=== PATIENT | male | born 1940 | race Caucasian/White ===

== ENCOUNTER → 2018-02-27 10:23 | Outpatient (CLI) | payer OTHER, SELFPAY ==
--- NOTE | 2018-02-27 10:27 | DI.RAD.S_ITS ---
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 recurrence? TECHNIQUE: 2 views of the chest were acquired. COMPARISON: None. FINDINGS: Surgical changes and devices: Median sternotomy. Multiple surgical clips over the left hilum. Lungs and pleura: Biapical pleural thickening. No pleural effusions or pneumothorax. Lungs are clear. Mediastinum: Mediastinal contours are normal. Elevation/scarring left hilum. Heart size is normal. Bones and chest wall: No suspicious bony abnormalities. Soft tissues appear unremarkable. IMPRESSION: Postoperative changes. Chronic volume loss left hemithorax. No acute cardiopulmonary abnormality. Dictated by: Donald Griffith M.D. on 02/27/2018 at 10:56 Approved by: Donald Griffith M.D. on 02/27/2018 at 10:59
== END ==
PROVIDERS: Visit Provider Specialist
DX: Z08 Encounter for follow-up examination after completed treatment for malignant neoplasm (principal); Z85.110 Personal history of malignant carcinoid tumor of bronchus and lung
CPT/HCPCS: 71046

== ENCOUNTER 2018-03-14 10:53 | Day surgery (SDC) | payer OTHER, SELFPAY ==
[2018-03-01 14:39] VITALS: BMI 20.3
[2018-03-14 13:44] VITALS: BMI 20.3
[2018-03-14] MEDS: LACTATED RINGERS 1,000 ML 42 ML IV ×2 (13:50→16:16)
--- NOTE | 2018-03-14 15:10 | PM.PREOP ---
Pre-operative Note Interval Note Pre-op Check: History & Physical Reviewed by Physician and Exam Performed H&P completed within 30 days and has changed as indicated here:: No change. numerous questions all of which were answered.
[2018-03-14] MEDS: CEFAZOLIN 2 GM/100 ML FROZ.PIGGY IV (15:21)
--- NOTE | 2018-03-14 15:43 | SUR.OPER ---
Supine on padded OR bed, head on pillow, arms secured on padded arm boards at <90 degrees abduction, legs uncrossed, safety belt at thigh, tape over blanket over lower legs.
[2018-03-14] MEDS: BUPIVACAINE 0.5% (PF) 30 ML VIAL INJ (15:48)
[2018-03-14 16:40] VITALS: BP 133/68; PULSE 68; RESP 10; TEMP 36.4; O2SAT 99
[2018-03-14 16:46] VITALS: BP 132/72; PULSE 76; RESP 16; O2SAT 98
--- NOTE | 2018-03-14 16:47 | PM.OP.1 ---
Operative Date/Time/Diagnoses - Date of procedure: 03/14/18 Time of procedure: 16:36 Pre-op diagnosis: Left inguinal hernia reducible without strangulation or incarceration Post-op diagnosis: same (Indirect and direct components) Procedure & Clinicians Procedure: Repair left inguinal hernia with plug and patch technique Same procedure as scheduled: Yes Indications: Symptomatic left inguinal hernia Surgeon: Simba Hogue Click Yes if Unassisted: Yes Anesthesia Type: General Operative Notes Findings: Indirect and direct inguinal hernias Closure Type: primary Specimen(s): none sent Implants & Drains: Mesh Estimated Blood Loss (mL): 5 Blood products transfused: none Procedure in detail: The patient was placed supine on the operating room table and underwent general LMA anesthesia. He was prepped and draped in the usual fashion. A transverse incision was made overlying the internal ring and carried down to the level of the external oblique. The external oblique was opened parallel with its fibers through the external ring. The cord structures were elevated. The cremaster was opened proximally and search made for an indirect sac. I found a lipoma of the cord and an indirect hernia sac. The lipoma was ligated at the level of the deep epigastric vessels with a 3 0 Polysorb. The sac was ligated with the same material once it was opened and determined that it had no contents. It was also tied with an 0 Tycron tie. The stump was allowed to retract and a small plug was placed in the defect and tacked into place. I 3 0 Polysorb was used to close the cremaster.. The floor was examined and was found to be[weakened consistent with a direct hernia]. A patch was placed across the floor and tacked at the pubic tubercle, the posterior lamella of the anterior rectus sheath, the ilioinguinal ligament, and superior lateral to the cord. The opening was modified as necessary to prevent tight constriction of the cord. Sutures of 0 Tycron were used to secure the mesh. The external oblique was closed with a running 4 0 Polysorb. The subcu was closed with interrupted 4 0 Polysorb. The skin was closed with a running 4 0 Polysorb subcuticular stitch and Steri-Strips. Dressing was applied, the patient was awakened, and the patient was taken to the recovery area in good condition. Complications: none Condition: stable Disposition: PACU Plan for aftercare: Follow-up in the office
[2018-03-14 16:51] VITALS: BP 134/75; PULSE 78; RESP 12; O2SAT 98
[2018-03-14 16:57] VITALS: BP 126/71; PULSE 76; RESP 12; TEMP 36.9; O2SAT 99
[2018-03-14 17:11] VITALS: BP 135/79; PULSE 70; RESP 15; TEMP 36.4; O2SAT 99
== END 2018-03-14 17:56 | disposition home or self-care (01) ==
PROVIDERS: Visit Provider Specialist
PROC: (CPT 49505; principal; 2018-03-14 13:00)
DX: K40.90 Unilateral inguinal hernia, without obstruction or gangrene, not specified as recurrent (principal)
CPT/HCPCS: 49505; 93005; C1781; J0690; J1100; J2250; J2405; J2704; J3010